=== PATIENT | male | born 1960 | race Caucasian/White ===

== ENCOUNTER 2018-10-19 10:43 | Day surgery (SDC) | payer OTHER ==
[2018-10-18 13:48] VITALS: BMI 27.4
[2018-10-19] MEDS ORDERED: LIDOCAINE 1%/EPI 1:100000 (20 ML MULTI DOSE VIAL) ONE (12:37)
[2018-10-19] MEDS ORDERED: BUPIVACAINE HCL/PF 0.5% (5MG/ML) 10 ML VIAL ONE (12:37)
[2018-10-19] MEDS ORDERED: DEXAMETHASONE SOD PHOSPHATE 4 MG/1 ML VIAL ONE (12:52)
[2018-10-19] MEDS ORDERED: ceFAZolin SODIUM 1 GM VIAL ONE (12:52)
[2018-10-19] MEDS ORDERED: PROPOFOL 20 ML ONE ×2 (12:52→13:16)
[2018-10-19] MEDS ORDERED: ONDANSETRON 4 MG/2 ML VIAL ONE (12:52)
[2018-10-19] MEDS ORDERED: MIDAZOLAM HCL 2 MG/2 ML SINGLE DOSE VIAL ONE (12:52)
--- NOTE | 2018-10-19 12:58 | HP ---
Satellite [facility] - Chief Complaint Chief Complaint: L KNEE PAIN History Source: Patient - Past Medical History Allergies/Adverse Reactions: Allergies Allergy/AdvReac Type Severity Reaction Status Date / Time No Known Allergies Allergy Verified 10/18/18 13:38 - Current Medications Current Medications: Home Medications Medication Instructions Recorded Tamsulosin HCl [Flomax] 0.4 mg PO DAILY 10/18/18 Satellite Physical Exam - Physical Examination Vital Signs: Vital Signs Period Temp Pulse Resp BP Sys/Lantigua Pulse Ox Last 24 Hr 97.5 F 68 18 117/78 98 Extremities: Other (+ JOINT LINE TENDERNESS) Satellite Impression/Plan - Impression/Plan Impression: INTERNAL DERANGEMENT LEFT KNEE Operative Procedure: ARTHROSCOPY LEFT KNEE Date to be Performed: 10/19/18
[2018-10-19] MEDS ORDERED: ePHEDrine SULFATE 50 MG/1 ML AMPULE ONE (13:23)
[2018-10-19] MEDS ORDERED: oxyCODONE HCL 5 MG TABLET PO PRN ×2 (13:57)
[2018-10-19] MEDS ORDERED: PROMETHAZINE HCL 25 MG/1 ML VIAL IVPUSH PRN (13:57)
[2018-10-19] MEDS ORDERED: ONDANSETRON 4 MG/2 ML VIAL IVPUSH PRN (13:57)
[2018-10-19 14:17] VITALS: TEMP 97.6
--- NOTE | 2018-10-19 14:41 | OP ---
Operative Note - Note: Operative Date: 10/19/18 ([facility]) Pre-Operative Diagnosis: left knee internal derangement Operation: left knee arthroscopy with PMM, PLM, debridement chondroplasty trochlea Post-Operative Diagnosis: Same as Pre-op Surgeon: Basilio Sagastume Anesthesiologist/[employer]EWEL [employer] POLISHER: Gabriela Dixon Anesthesia: General, Local Specimens Removed: shavings Estimated Blood Loss (mls): 5 Operative Report Dictated: Yes
[2018-10-19 16:11] VITALS: BP 135/80; PULSE 72
--- NOTE | 2018-10-19 17:57 | OP ---
DATE OF OPERATION: 10/19/2018 PREOPERATIVE DIAGNOSIS: Internal derangement left knee. POSTOPERATIVE DIAGNOSIS: Internal derangement left knee. PROCEDURE: Arthroscopy left knee, partial medial and lateral meniscectomies, and chondroplasty of the trochlea. SURGEON: Basilio Sagastume MD ANESTHESIA: General with LMA. CLOSURE: 4-0 nylon. COMPLICATIONS: None. CONDITION: To recovery room in stable condition. DESCRIPTION OF PROCEDURE: Patient was taken to the operating room on October 19, 2018. General anesthesia with LMA was administered by the anesthesiologist. The left lower extremity was prepped and draped in the usual sterile fashion. Mediolateral and infrapatellar portal sites were infiltrated with 1% Xylocaine with epinephrine. Both ports were then made with a 15-blade. The scope trocar was then placed through the inferolateral portal up into the suprapatellar pouch. The knee was inflated with cocktail of 10 mL of 1% Xylocaine, 10 mL of 0.5% Marcaine, and 20 mL of arthroscopic saline. After allowing the medication to sit in the knee for a few minutes, the procedure was performed. The medial and lateral gutters were visualized to be clean. The surface of the patella was found to be intact. In looking further, the trochlea was found to have extensive grade 3 or 4 changes. Any loose articular cartilage was debrided using a shaver. With valgus stress, the medial compartment was entered and the medial meniscus was visualized. It was found to have a clumpy exterior surface at the posterior horn. This was debrided back to smooth and stable meniscal tissue with a meniscal biter and arthroscopic shaver. The medial femoral condyle had some punctate cartilage issues here and there, but was for the most part intact as was the medial tibial plateau. At 90 degrees, the ACL was visualized and found to be partially torn, but intact. In the figure 4 position, the lateral compartment was entered and the lateral meniscus was found to have a large bucket-handle tear, which was split already. This was debrided back to smooth and stable meniscal tissue with a meniscal biter and arthroscopic shaver. The lateral femoral tunnel was mostly intact as was the lateral tibial plateau. The knee was irrigated with copious amounts of irrigation. The portals were closed with 4-0 nylon with adequate closure. The fluid was drained from the knee and the knee was inflated with a cocktail of 20 mL of 0.5% Marcaine. A sterile pressure dressing was placed over the knee. Patient awoken from anesthesia and transferred to the recovery room in stable condition. No complications. Estimated blood loss negligible. BASILIO SAGASTUME M.D. [id number]
--- NOTE | 2018-10-22 16:39 | PATH ---
Surgical Pathology Report Patient Name: ERYN URIBE [facility]. Rec. #: [id number] /Age/Gender: 1960 (Age: 58) / M Account: [id number] Location: [facility] Taken: 10/19/2018 Received: 10/19/2018 Reported: 10/22/2018 Physicians: Basilio Sagastume M.D. Specimen(s) Received LEFT KNEE SHAVINGS Clinical History Internal derangement left knee Final Diagnosis KNEE SHAVINGS, LEFT, ARTHROSCOPY: FRAGMENTS OF DENSE FIBROCONNECTIVE TISSUE, ADIPOSE TISSUE, AND SYNOVIUM. Electronically Signed Rafaela Sexton M.D. Gross Description Received in formalin labeled "left knee shavings," is a 3.0 x 1.5 x 0.3 cm aggregate of tolentino-yellow soft tissue fragments. The formalin is filtered and the specimen is entirely submitted in one cassette. /10/21/2018 saudi10/21/2018
== END 2018-10-19 15:45 | disposition home or self-care (01) ==
LOC: FASU 10:43
PROVIDERS: ATTEND Orthopaedic Surgery
PROC: 0SBD4ZZ Excision of Left Knee Joint, Percutaneous Endoscopic Approach (ICD-10-PCS; 2018-10-19)
PROC: 0SBD4ZZ Excision of Left Knee Joint, Percutaneous Endoscopic Approach (ICD-10-PCS; principal; 2018-10-19 13:33)
DX: M23.362 Other meniscus derangements, other lateral meniscus, left knee (principal); M23.322 Other meniscus derangements, posterior horn of medial meniscus, left knee
CPT/HCPCS: 29880; G0289; 88304-TC; 94760

== ENCOUNTER 2023-11-21 18:38 | Emergency (ER) | payer OTHER ==
[2023-11-21 18:44] VITALS: BP 153/73; PULSE 56; RESP 16; TEMP 98.4; BMI 42.5
[2023-11-21] MEDS ORDERED: ACETAMINOPHEN 325 MG TABLET (FP) ONE (19:16)
[2023-11-21] MEDS: ACETAMINOPHEN 325 MG TABLET (FP) PO ONE (19:19)
== END 2023-11-21 20:13 | disposition home or self-care (01) ==
LOC: JERFT 18:38
DX: S92.512A Displaced fracture of proximal phalanx of left lesser toe(s), initial encounter for closed fracture (principal); M25.572 Pain in left ankle and joints of left foot; W01.0XXA Fall on same level from slipping, tripping and stumbling without subsequent striking against object, initial encounter
CPT/HCPCS: 73610-TC-LT-FY; 73630-TC-LT; 99283-25